=== PATIENT | female | born 1985 | race Caucasian/White ===

== ENCOUNTER 2019-06-15 10:21 | Outpatient (CLI) | payer OTHER, MEDICAID, SELFPAY ==
[2019-06-15 11:11] LABS: Appearance Urine UA CLEAR; Bilirubin Urine UA NEGATIVE (NEGATIVE); Color Urine UA YELLOW; Glucose Urine UA NEGATIVE (Negative); Ketones Urine UA NEGATIVE (NEGATIVE); Leukocyte Esterase Urine UA NEGATIVE (NEGATIVE); Nitrite Urine UA NEGATIVE (Negative); Occult Blood Urine UA NEGATIVE (Negative); Protein Urine UA NEGATIVE (Negative); Specific Gravity Urine UA <=1.005 (1.000-1.035); Urobilinogen Urine UA 0.2 E.U./dL (0.2)
== END 2019-06-15 11:48 | disposition home or self-care (01) ==
LOC: OB 06-16 12:39
PROVIDERS: Visit Provider Specialist
DX: O26.23 Pregnancy care for patient with recurrent pregnancy loss, third trimester (principal); Z3A.28 28 weeks gestation of pregnancy
CPT/HCPCS: 59025; 81003; G0378; G0379

== ENCOUNTER → 2019-06-25 11:56 | Outpatient (CLI) | payer OTHER, MEDICAID, SELFPAY ==
--- NOTE | 2019-06-25 11:58 | DI.US.S_ITS ---
PROCEDURE: US OB FOLLOW UP INDICATIONS: F/U TO ANATOMY SCAN OUTSIDE/PRIOR DATING DATA: . First dating scan (date and location): 06/25/17. Estimated date of delivery ([place]) from first dating scan: 09/06/19 which is provided by Dr. Patel. TECHNIQUE: Real-time scanning was performed of the fetus, with image documentation and biometric measurements. Endovaginal scanning: No COMPARISON: [facility], US, US OB >= 14 WEEKS FETUS, 06/25/2019, 11:38. Prior ultrasound report from [facility] dated 04/07/19. FINDINGS: General: A single living intrauterine gestation is present. Presentation: Vertex. Placenta: Placental position is anterior, without previa. Amniotic fluid index: 16.5 cm, normal range is 5-24 cm. heart rate: 133 beats per minute. Maternal cervical canal: 6.9 cm long. Normal lower limit is 2.5 cm. biometrics: Biparietal diameter: 31 weeks 6 days Head circumference: 31 weeks 6 days Abdominal circumference: 31 weeks 2 days Femur length: 29 weeks 4 days Estimated gestational age from initial scan: 29 weeks 4 days Composite gestational age from present scan: 31 weeks 1 day Estimated weight and percentile: 1660 g; 83rd percentile Measurement variability for biometric dating: +/- 7 days from 14 weeks to 15 weeks 6 days gestation, +/- 10 days from 16 weeks to 21 weeks 6 days gestation, +/- 2 weeks from 22 weeks to 27 weeks 6 days gestation, +/- 3 weeks for 28 weeks gestation or later. weight reference: 4500 g or EFW >90/95% is considered macrosomia or large for gestational age. EFW <10% is small for gestational age. EFW 5% or less is considered intra-uterine growth restriction. Unremarkable appearance of the spine, 4 chamber heart, stomach and bladder. No ultrasound evidence of hydronephrosis identified. Bilateral hands and ventricular outflow tracts are suboptimally visualized on this exam. Other: Prominent and heterogeneous mass-like appearance of the cervix noted, which was also described on a provided radiology report dated 04/07/19 4 a scan from [facility]. A large masslike component of the cervix measures 6.2 x 3.8 x 3.4 cm with internal vascularity. Continued followup recommended. IMPRESSION: 1. Single intrauterine gestation with composite gestational age from present scan of 31 weeks 1 day and heart rate of 133 beats per minute. 2. The bilateral hands and ventricular outflow tracts are suboptimally visualized on this exam. Attention on followup exams suggested. 3. Prominent masslike abnormal appearance of the cervix, which appears to have also been described on comparison outside radiology reports and may be related to cervical fibroids. Close clinical followup and ultrasound followup are recommended. Dictated by: Sixto Combs [facility] Interpreted: Tristin Montanez MD on 06/25/2019 at 16:50 Approved by: Tristin Montanez M.D. on 06/25/2019 at 20:54
== END ==
PROVIDERS: Visit Provider Specialist
DX: O09.523 Supervision of elderly multigravida, third trimester (principal); Z3A.31 31 weeks gestation of pregnancy
CPT/HCPCS: 36415; 76816

== ENCOUNTER → 2019-08-12 11:47 | Outpatient (CLI) | payer OTHER, MEDICAID, SELFPAY ==
[2019-08-13 08:09] LABS: Strep Grp B PCR NEG for Grp B Strep
== END ==
PROVIDERS: Visit Provider Obstetrics & Gynecology
DX: Z34.83 Encounter for supervision of other normal pregnancy, third trimester (principal); Z36.85 Encounter for antenatal screening for Streptococcus B; Z3A.36 36 weeks gestation of pregnancy
CPT/HCPCS: 87653

== ENCOUNTER 2019-08-31 11:24 | Inpatient (IN) | payer OTHER, MEDICAID, SELFPAY ==
--- NOTE | 2019-08-31 12:38 | PM.OBHP.1 ---
OB HPI Date/Time Date of admission: 08/31/19 Date Patient Seen: 08/31/19 History of Present Condition Chief complaint: [id number] : 8 Para: 5 Estimated Date of Delivery: 09/06/19 Estimated Gestational Age (weeks): 39 Narrative: Sharri Negrete is a 33 year old female admitted for repeat section Indications Operative indications ( section): previous uterine surgery History of Present care: good care, initiated at week # (7), number of visits (12) and pounds weight gain (48) Dating criteria: LMP confirmed by 1st trimester US Ultrasounds: normal mid trimester US Abnormal ultrasound findings: Cervical fibroid Obstetrical complications: none Medical complications: none Preadmission Labs Blood type: A (+) positive -: Antibody screen: negative, GBS status: negative, HBsAG: negative, HIV: negative and RPR/VDLR: negative -: Chlamydia screen: not detected and Gonorrhea screen: not detected -: Rubella: immune HCAB: negative Cell-free DNA: Normal female Prior (ies) History: See ACOG form Evaluation Evaluation Baseline heart rate: 130 Variability: Moderate (11-25) monitor accelerations: Present monitor decelerations: Absent Category of Tracing: I [facility] Medical History (Updated 06/23/19 @ 20:28 by Hailee Casillas) Anxiety (Chronic ~2017) Chicken pox (Resolved ~1987) Depression (Chronic ~2012) Headache (Chronic ~1999) Migraines (Chronic ~1999) Uterine myoma (Acute ~2016) Surgical History (Updated 06/03/19 @ 12:21 by Jossy Patel MD) Previous section (Acute ~09/16/17) Family History (Updated 06/23/19 @ 20:28 by Hailee Casillas) Brother Hypertension Meds Home Medications and Allergies Home Medications Medication Instructions Recorded Confirmed Type prenat.vits,brooke,lxb-[id number]-[id number] 1 tab PO DAILY 06/02/19 History Allergies Allergy/AdvReac Type Severity Reaction Status Date / Time No Known Drug Allergies Allergy Verified 06/02/19 11:57 Review of Systems Review of Systems Narrative: Patient has had good movement. No signs or symptoms of preeclampsia. No fevers. No rupture membranes. Patient decided she does not wish to have a tubal ligation. ROS Unobtainable: All systems reviewed & are unremarkable except as noted in HPI and below Exam Vital Signs (past 8 hours): Blood pressure 121/86, pulse 78 Narrative Exam Narrative: HEENT exam within normal limits. Lungs are clear to auscultation and percussion. Heart is regular rate and rhythm no S3-S4 or murmurs. No thyromegaly. Abdomen is gravid. Fetus is vertex. Extremities without edema and nontender. Objective Labs Result Diagrams: 08/31/19 12:05 Assessment and Plan Assessment and Plan Assessment and Plan narrative: 39 week gestation with prior section in large cervical fibroid for repeat section
[2019-08-31 12:47] LABS: Add Manual Diff / Slide Review NO; Basophils Absolute Auto 0 /uL (0-100); Basophils Percent Auto 0.6 % (0-2); Eosinophils Absolute Auto 100 /uL (0-450); Eosinophils Percent Auto 1.5 % (2-4); Hemoglobin 13.3 g/dL (12.0-16.0); Lymphocytes Absolute Auto 2000 /uL (1100-4500); Lymphocytes Percent Auto 29.6 % (25-40); Mean Corpuscular HGB Conc 34.1 % (30-36); Mean Corpuscular Hemoglobin 32.7 PG (26-34); Monocytes Absolute Auto 600 /uL (0-900); Monocytes Percent Auto 9.2 % (3-14); Neutrophils Absolute Auto 3900 /uL (1500-7000); Neutrophils Percent Auto 59.1 % (50-75); Platelet Count 246 X10^3/uL (150-400); Red Blood Cell Count 4.07 X10^6/uL (4.0-5.2); White Blood Cell Count 6.7 X10^3/uL (4.5-11.0)
--- NOTE | 2019-08-31 12:57 | PM.PREOP ---
Pre-operative Note Interval Note History & Physical reviewed/Exam performed by Physician: Yes Changes to H&P: No H&P completed within 30 days and has changed as indicated here:: Patient has decided not to have a tubal ligation at time of
[2019-08-31 13:06] VITALS: BP 121/68
--- NOTE | 2019-08-31 13:09 | SUR.OPER ---
Supine on Padded OR bed, head on pillow, safety belt at thigh, arms secured on padded arm boards at <90 degrees abduction. Bump under right buttock. Legs uncrossed with pillow under knees, gel pad to heels, tape over blanket to lower legs.
[2019-08-31] MEDS: LACTATED RINGERS 1,000 ML 100 ML IV ×2 (13:13→15:30)
[2019-08-31] MEDS: CEFAZOLIN 2 GM/100 ML FROZ.PIGGY IV (13:32)
[2019-08-31] MEDS: ACETAMINOPHEN IV 1,000 MG/100 ML VIAL 400 MG IV (13:51)
--- NOTE | 2019-08-31 14:04 | SUR.OPER ---
VIABLE FEMALE INFANT DELIVERED AT 1355. PLACENTA AND CORD BLOOD TO OB WITH RN.
[2019-08-31 14:40] VITALS: BP 102/61; PULSE 70; RESP 11; TEMP 36.2; O2SAT 97
[2019-08-31 14:45] VITALS: BP 107/64; PULSE 70; RESP 15; O2SAT 97
--- NOTE | 2019-08-31 14:48 | P.OP_ITS ---
Operative Date/Time/Diagnoses Date of procedure: 08/31/19 Time of procedure: 14:48 Pre-op diagnosis: 39 week gestation with prior section for repeat Post-op diagnosis: same Procedure & Clinicians Procedure: Repeat low-transverse section Same procedure as scheduled: Yes Indications: Previous section and cervical fibroid Surgeon: Jossy Patel Vice President Of Consulting Services: Jamia Hammer Anesthesia Type: Spinal Operative Notes Findings: Normal tubes, ovaries,and uterus. Viable female with Apgars of 8, 9. Weight is pending Closure Type: primary Specimen(s): none sent Applied: catheter (Cool) Estimated Blood Loss (mL): 400 Blood products transfused: none Procedure in detail: The patient was brought to the operating room where she underwent a spinal for anesthesia. She was placed in a supine position with a left lateral tilt. A Cool catheter was placed. Pulsatile stockings were placed and functional throughout the case. 2 g of Ancef were given IV prior to the incision. Warming was in place. The patient was prepped and draped in usual sterile fashion. A low transverse incision was made with a scalpel through the prior incision and the incision was carried down to the fascial layer which was incised transversely with scissors. The midline attachments are superiorly and inferiorly. Some bleeding was controlled Bovie. The rectus muscles were in the midline and the peritoneal incision was made with no damage to internal structures. The peritoneum was incised and superiorly and inferiorly. Bladder blade was placed and a bladder flap was developed and the bladder held away from the lower uterine segment. An incision was made in the uterus with the scalpel and the incision was extended with stretching. The head was elevated out of the abdomen and with fundal pressure and vacuum assistance the baby was delivered. The was bulb suctioned for clear fluid and handed off to the warmer. Cord blood was collected. The placenta delivered spontaneously with traction. The uterus was cleaned with clean laps. The uterine incision was closed in 2 layers of 0 chromic suture the first a running locking layer the second an imbricating layer. The bladder peritoneum was repaired with 2-0 Polysorb suture. The gutters were cleaned of any remaining fluids and ovaries and tubes were observed to be normal. Adequate hemostasis was noted. The perineum was closed with 2-0 Polysorb suture. The fascia layer was closed with 0 Polysorb suture with 2 stitches. The incision was irrigated and adequate hemostasis noted. The incision was closed with interrupted 3-0 Polysorb sutures and then a subcuticular stitch of 4-0 Polysorb suture. Steri- Strips were placed. The uterus was massaged to remove any clots. Per patient request a skin tag on her vulva was removed with the scalpel and closed with a [id number] suture of 4 0 Monocryl. The patient went to recovery room in good condition. Counts of instruments and sponges were correct. Complications: none Post-operative Condition: stable Disposition: other ( Center) Plan for aftercare: Routine post section
[2019-08-31 14:50] VITALS: BP 112/54; PULSE 77; RESP 11; O2SAT 97
[2019-08-31] MEDS: ONDANSETRON 4 MG/2 ML INJ IV (14:57)
[2019-08-31 15:06] VITALS: BP 111/56; PULSE 77; RESP 11; TEMP 36.7; O2SAT 96
[2019-08-31] MEDS: OXYCODONE IR 5 MG TABLET PO ×2 (18:02→21:40)
[2019-08-31] MEDS: METOCLOPRAMIDE 10 MG/2 ML INJ IV (21:40)
[2019-08-31] MEDS: KETOROLAC 30 MG/ML VIAL IV (21:40)
[2019-09-01] MEDS: LACTATED RINGERS 1,000 ML 100 ML IV (01:00)
[2019-09-01] MEDS: OXYCODONE IR 5 MG TABLET PO ×5 (04:46→23:38)
[2019-09-01] MEDS: KETOROLAC 30 MG/ML VIAL IV ×2 (04:46→10:49)
[2019-09-01 06:02] LABS: Add Manual Diff / Slide Review NO; Basophils Absolute Auto 0 /uL (0-100); Basophils Percent Auto 0.4 % (0-2); Eosinophils Absolute Auto 100 /uL (0-450); Hematocrit 36.8 % (36-46); Hemoglobin 12.5 g/dL (12.0-16.0); Lymphocytes Absolute Auto 1400 /uL (1100-4500); Lymphocytes Percent Auto 18.1 % (25-40); Mean Corpuscular HGB Conc 34.1 % (30-36); Mean Corpuscular Hemoglobin 32.8 PG (26-34); Mean Corpuscular Volume 96.4 fL (80-100); Monocytes Absolute Auto 700 /uL (0-900); Monocytes Percent Auto 8.9 % (3-14); Neutrophils Absolute Auto 5700 /uL (1500-7000); Neutrophils Percent Auto 71.6 % (50-75); Platelet Count 228 X10^3/uL (150-400); Red Blood Cell Count 3.82 X10^6/uL (4.0-5.2); Red Cell Distribution Width 13.8 % (11.6-14.8)
[2019-09-01] MEDS: DOCUSATE 250 MG CAPSULE PO (08:33)
--- NOTE | 2019-09-01 10:18 | P.PNOB_ITS ---
Subjective - OB Subjective Patient comments: no complaints and flatus present [place] baby status: doing well feeding status: exclusively breast feeding Date Patient Seen: 09/01/19 Time Patient Seen: 10:18 Interval history: Patient is day 1 post repeat section doing well. Exam Vital Signs (past 8 hours): Blood pressure 101/56, pulse 71, temperature 97.9? Oxygen Delivery Method Room Air Narrative Exam Narrative: Abdomen is soft, nontender. Uterus is firm, at U, nontender. Dressing is clean, dry, intact. Mild lochia. Extremities without edema and nontender. Objective Labs Result Diagrams: 09/01/19 05:45 Labs: Laboratory Results - last 24 hr 08/31/19 08/31/19 09/01/19 12:05 12:05 05:45 WBC 6.7 8.0 RBC 4.07 3.82 L Hgb 13.3 12.5 Hct 39.0 36.8 MCV 96.0 96.4 MCH 32.7 32.8 MCHC 34.1 34.1 RDW 14.0 13.8 Plt Count 246 228 Neut % (Auto) 59.1 71.6 Lymph % (Auto) 29.6 18.1 L [place] % (Auto) 9.2 8.9 Eos % (Auto) 1.5 L 1.0 L Baso % (Auto) 0.6 0.4 Neut # (Auto) 3900 5700 Lymph # (Auto) 2000 1400 [place] # (Auto) 600 700 Eos # (Auto) 100 100 Baso # (Auto) 0 0 Blood Type A Positive Antibody Screen Negative Assessment & Plan Assessment and Plan (1) Status post repeat low transverse section: Status: Acute Assessment and plan: Patient doing well post section. Current Visit: Yes Plan day: 1 plan OB: routine postop care Time Spent With Patient Time: Total time spent is greater than 50% in coordination of care (as documented) at patient's floor/unit and/or counseling patient: Time with patient: less than 15 minutes
[2019-09-01] MEDS: IBUPROFEN 600 MG TABLET PO ×2 (16:50→23:38)
[2019-09-02] MEDS: OXYCODONE IR 10 MG TABLET PO ×3 (03:01→12:44)
[2019-09-02] MEDS: ACETAMINOPHEN 325 MG TABLET 650 MG PO (03:01)
--- NOTE | 2019-09-02 07:40 | P.DS_ITS ---
Discharge Providers Provider Date of admission: 08/31/19 11:24 Discharge Date: 09/02/19 Consults: 08/31/19 15:21 Consult to Family Law Legal Assistant Routine Comment: Discharge provider: Jossy Patel MD Summary Hospital Course Date Patient Seen: 09/02/19 Time Patient Seen: 07:40 Procedures: Repeat low-transverse section Hospital Course: Patient underwent a repeat low-transverse section on 08/31/2019. She did well postoperatively. Peripartum Data Infant Delivery Method: Section complications: none [place] 1: Gender: Female Disposition of : home Discharge Diagnosis (1) Status post repeat low transverse section: Status: Acute Status at Discharge Cognitive/behavioral status at discharge: oriented Functional status at discharge: independent ambulation Overall status at discharge: patient is progressing back to baseline Time Spent with Patient Time attestation: Total time spent providing and/or coordinating discharge services: Time spent: Less than 30 minutes Objective Labs Result Diagrams: 09/01/19 05:45 Exam Vital Signs (past 8 hours): Blood pressure 120/73, pulse 79, temperature 98.9? Oxygen Delivery Method Room Air Narrative Exam Narrative: Abdomen is soft, nontender. Uterus is firm, at U, appropriately tender. Dressing is clean, dry, intact. Minimal lochia. Extremities trace edema and nontender. Patient is a positive and rubella immune and received Tdap in the 3rd trimester. Discharge Plan Discharge Plan Patient Disposition: Home Discharge orders & Medications Prescriptions: New ibuprofen 600 mg Tablet 600 mg PO Q6HR PRN (Reason: Fever/Mild Pain (1-3)) Qty: 30 RF: 0 docusate sodium 250 mg Capsule 250 mg PO DAILY Qty: 20 RF: 0 oxycodone 10 mg Tablet 10 mg PO Q4HR PRN (Reason: Pain, Severe (7-10)) Qty: 40 RF: 0 Continued prenat.vits,brooke,cqn-[id number] tablet 1 tab PO DAILY RF: 0 Follow up/Referrals: Josys Patel MD [Physician] - (1 week incision check) Diet/Activity/Treatments Diet: Regular Activity: Nothing in vagina or lift over 20 lb for 6 weeks Skin/Wound/Dressing Care Report to your healthcare provider any signs of infection, such as:: chills, fever, increased pain and unusual redness Dressing: Leave dressing on until 1 week appointment
[2019-09-02] MEDS: DOCUSATE 250 MG CAPSULE PO (08:42)
[2019-09-02] MEDS: IBUPROFEN 600 MG TABLET PO (09:22)
[2019-09-02 14:04] VITALS: BP 111/56; PULSE 77; RESP 11; TEMP 36.7
== END 2019-09-02 13:55 | disposition home or self-care (01) | DRG 540 ==
LOC: AC 11:29 → LABOR 11:29
PROVIDERS: Admitting Provider Specialist; Visit Provider Specialist
PROC: 10D00Z1 Extraction of Products of Conception, Low, Open Approach (ICD-10-PCS; CPT 59514; principal; 2019-08-31 13:30)
DX: O34.211 Maternal care for low transverse scar from previous cesarean delivery (principal); Z3A.39 39 weeks gestation of pregnancy; Z37.0 Single live birth; D26.0 Other benign neoplasm of cervix uteri
CPT/HCPCS: 36415; 59050; 59514; 85025; 86850; 86900; 86901; J0131; J0690; J1885; J2274; J2405; J2704; J2765

== ENCOUNTER 2020-03-28 19:41 | Emergency (ER) | payer OTHER, MEDICAID, SELFPAY ==
[2020-03-28 19:45] VITALS: BP 172/76; PULSE 111; RESP 24; TEMP 36.8; O2SAT 95; BMI 35.9
[2020-03-28 20:29] LABS: Add Manual Diff / Slide Review NO; Basophils Absolute Auto 0 /uL (0-100); Basophils Percent Auto 0.3 % (0-2); Eosinophils Absolute Auto 0 /uL (0-450); Eosinophils Percent Auto 0.8 % (2-4); Hematocrit 43.8 % (36-46); Hemoglobin 14.9 g/dL (12.0-16.0); Lymphocytes Absolute Auto 1700 /uL (1100-4500); Lymphocytes Percent Auto 29.3 % (25-40); Mean Corpuscular HGB Conc 34.1 % (30-36); Mean Corpuscular Hemoglobin 32.2 PG (26-34); Mean Corpuscular Volume 94.4 fL (80-100); Monocytes Absolute Auto 700 /uL (0-900); Monocytes Percent Auto 11.4 % (3-14); Neutrophils Absolute Auto 3500 /uL (1500-7000); Neutrophils Percent Auto 58.2 % (50-75); Platelet Count 253 X10^3/uL (150-400); Red Blood Cell Count 4.64 X10^6/uL (4.0-5.2); Red Cell Distribution Width 11.9 % (11.6-14.8)
[2020-03-28 20:31] LABS: Amorphous Sediment Urine 1+; Bacteria Urine Many (>30); Culture Indicated Urine Specimen Cultured; Mucus Urine 1+ (Negative); RBC Urine 1-5/HPF (0-5/HPF); Squamous Epithelial Cell Urine 10-30 /HPF (0-5/HPF); WBC Urine 10-30/HPF (0-5/HPF)
[2020-03-28 20:39] LABS: INR 1.1 (0.9-1.3); Prothrombin Time 12.3 SECONDS (10.1-12.7)
[2020-03-28 20:41] LABS: Alanine Aminotransferase 21 IU/L (<35); Albumin 4.2 g/dL (3.5-5.0); Albumin Globulin Ratio 1.3 (1.0-2.8); Alkaline Phosphatase 67 U/L (38-126); Aspartate Aminotransferase 26 IU/L (14-36); BUN Creatinine Ratio 23.2 (6-22); Bilirubin Total 0.7 mg/dL (0.2-1.3); Blood Urea Nitrogen 13 mg/dL (7-17); Calcium 9.2 mg/dL (8.4-10.2); Carbon Dioxide 25 mmol/L (22-32); Chloride 106 mmol/L (98-107); Estimated Glomerular Filt Rate > 60.0 mL/min (>60); Globulin 3.2 g/dL (1.7-4.1); Glucose 99 mg/dL (70-100); HEMOLYSIS < 15 (0-50); Lipase 45 U/L (23-300); PTT Partial Thromboplastin Tim 36 SECONDS (26.4-36.2); Potassium 3.7 mmol/L (3.4-5.1); Sodium 140 mmol/L (137-145); Total Protein 7.4 g/dL (6.3-8.2)
--- NOTE | 2020-03-28 22:20 | ED_ITS ---
HPI - Abdominal Pain General Chief Complaint: Abdominal Pain Stated Complaint: Muscle Spasms, Whole Body Time Seen by Provider: 03/28/20 22:20 Source: patient Mode of arrival: Ambulatory Limitations: no limitations History of Present Illness HPI narrative: The patient complains of generalized muscle spasm and cramping pain associated with spasm, all over the body. However she specific complains of abdominal cramping. With this she has no nausea vomiting. She has had no diarrhea. She is not . She denies dysuria or hematuria. She has no history suggesting urinary infection. She denies headache, visual changes, or weakness or numbness. She takes vitamins, as well as sertraline for depression. She has been on the sertraline for several months. She has no associated dyspnea or throat tightness. She has no rash. She denies recent fever or illness. She has done no physical activity that would create the muscle pain. She initially denied other ingestion. She has a prior history of methamphetamine abuse. After being confronted with the toxicology screen, she confirmed marijuana use March 26. Related Data Home Medications Medication Instructions Recorded Confirmed prenat.vits,brooke,[id number] 1 tab PO DAILY 06/02/19 11/25/19 Previous Rx's Medication Instructions Recorded ibuprofen 600 mg PO Q6HR PRN #30 tab 09/02/19 sertraline 50 mg tablet 50 mg PO DAILY #90 tab 10/08/19 Allergies Allergy/AdvReac Type Severity Reaction Status Date / Time No Known Drug Allergies Allergy Verified 11/25/19 10:37 Review of Systems Constitutional Constitutional: Denies chills, Denies fever(s), Denies lethargy and Denies weakness Comments: No recent illness Eyes Eyes: Denies change in vision ENT Ears, Nose, Mouth, and Throat: Denies change in voice, Denies vertigo, Denies dizziness, Denies neck pain and Denies sore throat Cardiovascular Cardiovascular: Denies chest pain, Denies syncope, Denies irregular heart rhythm, Denies dyspnea, Denies dyspnea on exertion and Denies orthopnea Respiratory Respiratory: Denies cough, Denies dyspnea, Denies dyspnea on exertion and Denies wheezing Gastrointestinal Gastrointestinal: Denies change in bowel habits, Denies diarrhea, Denies nausea and Denies vomiting Comments: Cramping abdominal pain. Genitourinary Genitourinary: Denies dysuria Genitourinary: Denies dysuria Musculoskeletal Musculoskeletal: Denies back pain and Denies neck pain Integumentary/Breasts Skin/Breast: Denies erythema and Denies rash Neurologic Neurologic: Denies behavioral changes, Denies confusion, Denies vertigo, Denies dizziness, Denies syncope and Denies weakness Psychiatric Psychiatric: Reports anxiety, Denies behavioral changes and Denies confusion Allergic/Immunologic Allergic/Immunologic: Denies wheezing Patient History Medical History Anxiety (Chronic ~2017) Chicken pox (Resolved ~1987) Depression (Chronic ~2012) Headache (Chronic ~1999) History of methamphetamine abuse (Acute) Migraines (Chronic ~1999) Uterine myoma (Acute ~2016) Surgical History Previous section (Acute ~09/16/17) Family History Brother Hypertension Social History Smoking Status: Former smoker Smoking Status: Former smoker alcohol intake frequency: 0-2 drinks per day Substance Use Type: does not use Exam Initial Vital Signs Initial Vital Signs: Vital Signs Temperature 98.2 F 03/28/20 19:45 Pulse Rate 111 H 03/28/20 19:45 Respiratory Rate 24 03/28/20 19:45 Blood Pressure 172/76 H 03/28/20 19:45 Pulse Oximetry 95 03/28/20 19:45 Const General: cooperative and well developed Nutritional Appearance: well nourished [facility] Head: normocephalic and atraumatic Nose: external nose normal Mouth: oral mucosae normal Throat: posterior oropharynx normal Eyes General: appearance normal, both eyes and all related structures Eyelids: eyelids normal Conjunctivae: conjunctivae normal Sclera: sclerae normal Pupils: PERRL and pupil size on the right 6 and on the left 6 EOM: EOM intact bilaterally Neck Neck: No JVD Resp Effort & Inspection: normal respiratory effort and able to speak in complete sentences Auscultation: clear to auscultation bilaterally, no rales, no rhonchi and no wheezes Cardio Rate: regular rate Rhythm: regular rhythm Heart Sounds: no click, no gallops, no murmurs and no rubs Pulses: normal peripheral pulses GI Inspection: non-distended Palpation: soft, no hepatosplenomegaly, No guarding, No pulsatile mass and No tender Auscultation: normal bowel sounds Back/Spine/Pelvis Back: No CVA tenderness Skin General: no rashes or lesions noted Neuro General: patient alert, patient oriented x3, gait normal and no focal motor deficits Speech: speech normal Extrem General: full ROM, no pedal edema and no calf tenderness Psych Appearance: well kempt Mental Status: mental status grossly normal Attitude: cooperative Course Course Course Narrative: The patient was treated with IV fluid bolus, and IV Ativan. She initially came some insomnia, she was able to awaken and have a coherent conversation. She was oriented x3, seemingly not agitated we spoke the 2nd time. The UA was consistent with the UTI, Rocephin was given. There was only clinical finding before the drug screen came back. I informed her of the findin gs on the drug screen. She declined using the drugs listed, noting that she did smoke marijuana March 26, however. She tells me she has a remote history of methamphetamine abuse. Avoiding all drug use is suggested. I advised follow-up with her doctor or an appropriate social agency if necessary to avoid drug use. Orders Ordered: ED Orders 03/28/20 19:55 Urine Culture Stat Urine Drug Screen, Rapid Stat Urine Microscopic Stat 03/28/20 20:10 Complete Blood Count AUTO DIFF Stat Comprehensive Metabolic Panel Stat Creatine Kinase Stat Lipase Stat Partial Thromboplastin Time Stat Prothrombin Time INR Stat Sodium Chloride (Normal Saline 0.9%) 1,000 mls @ 1,000 mls/hr IV BOLUS PRN PRN Reason: Fluid replacement Last Infusion: 03/29/20 00:38 Dose: 0 mls/hr Documented by: Admin: 03/28/20 22:36 Dose: 1,000 mls/hr Documented by: ANGEL Discontinued Medications Ceftriaxone Sodium/Dextrose (Rocephin) 1 gm in 50 mls @ 100 mls/hr IV NOW ONE Stop: 03/28/20 22:57 Last Infusion: 03/28/20 23:24 Dose: 0 mls/hr Documented by: Admin: 03/28/20 22:36 Dose: 100 mls/hr Documented by: ANGEL Lorazepam (Ativan) 0.5 mg IV NOW ONE Stop: 03/28/20 22:28 Last Admin: 03/28/20 22:35 Dose: 0.5 mg Documented by: ANGEL Lorazepam (Ativan) 0.5 mg IV NOW ONE Stop: 03/28/20 22:56 Last Admin: 03/28/20 22:59 Dose: 0.5 mg Documented by: ANGEL Vital Signs Vital signs: Vital Signs - 8 hr 03/28/20 19:45 03/28/20 22:30 03/28/20 23:00 Temperature 98.2 F Pulse Rate 111 H 113 H 105 H Respiratory Rate 24 Blood Pressure 172/76 H 146/90 H Pulse Oximetry 95 97 96 03/28/20 23:03 03/28/20 23:30 03/28/20 23:31 Temperature Pulse Rate 101 H 90 100 H Respiratory Rate Blood Pressure 138/89 149/81 H Pulse Oximetry 96 96 96 03/29/20 00:00 Temperature Pulse Rate 98 H Respiratory Rate Blood Pressure 143/82 H Pulse Oximetry 96 MDM - Abdominal Pain Lab Data Result diagrams: 03/28/20 20:10 03/28/20 20:10 Labs: Lab Results 03/28/20 03/28/20 03/28/20 Range/Units 19:55 19:55 20:10 WBC 6.0 (4.5-11.0) X10^3/uL RBC 4.64 (4.0-5.2) X10^6/uL Hgb 14.9 (12.0-16.0) g/dL Hct 43.8 (36-46) % MCV 94.4 (80-100) fL MCH 32.2 (26-34) PG MCHC 34.1 (30-36) % RDW 11.9 (11.6-14.8) % Plt Count 253 (150-400) X10^3/uL Neut % (Auto) 58.2 (50-75) % Lymph % (Auto) 29.3 (25-40) % [place] % (Auto) 11.4 (3-14) % Eos % (Auto) 0.8 L (2-4) % Baso % (Auto) 0.3 (0-2) % Neut # (Auto) 3500 (9399-9468) /uL Lymph # (Auto) 1700 (0350-0831) /uL [place] # (Auto) 700 (0-900) /uL Eos # (Auto) 0 (0-450) /uL Baso # (Auto) 0 (0-100) /uL PT (10.1-12.7) SECONDS INR (0.9-1.3) APTT (26.4-36.2) SECONDS Sodium (137-145) mmol/L Potassium (3.4-5.1) mmol/L Chloride (98-107) mmol/L Carbon Dioxide (22-32) mmol/L BUN (7-17) mg/dL Creatinine (0.52-1.04) mg/dL Estimated GFR (>60) mL/min BUN/Creatinine Ratio (6-22) Glucose (70-100) mg/dL Calcium (8.4-10.2) mg/dL Total Bilirubin (0.2-1.3) mg/dL AST (14-36) IU/L ALT (<35) IU/L Alkaline Phosphatase (38-126) U/L Total Creatine Kinase (30-135) U/L Total Protein (6.3-8.2) g/dL Albumin (3.5-5.0) g/dL Globulin (1.7-4.1) g/dL Albumin/Globulin Ratio (1.0-2.8) Lipase (23-300) U/L Urine RBC 1-5/hpf (0-5/HPF) Urine WBC 10-30/hpf H (0-5/HPF) Ur Squamous Epith Cells 10-30 /hpf H (0-5/HPF) Amorphous Sediment 1+ Urine Bacteria Many (>30) H (None) Urine Mucus 1+ H (Negative) Ur Culture Indicated? Specimen cultured U Opiates 300ng/mL cut Positive H (Negative) Ur Oxycodone Screen Negative (Negative) Urine Methadone Screen Negative (Negative) Ur Barbiturates Screen Negative (Negative) U Tricyclic Antidepress Positive H (Negative) Ur Phencyclidine Scrn Negative (Negative) Ur Amphetamines Screen Positive H (Negative) U Methamphetamines Scrn Positive H (Negative) Ur MDMA Scrn (Ecstasy) Positive H (Negative) U Benzodiazepines Scrn Negative (Negative) Urine Cocaine Screen Negative (Negative) U Marijuana (THC) Screen Positive H (Negative) 03/28/20 03/28/20 03/28/20 Range/Units 20:10 20:10 20:10 WBC (4.5-11.0) X10^3/uL RBC (4.0-5.2) X10^6/uL Hgb (12.0-16.0) g/dL Hct (36-46) % MCV (80-100) fL MCH (26-34) PG MCHC (30-36) % RDW (11.6-14.8) % Plt Count (150-400) X10^3/uL Neut % (Auto) (50-75) % Lymph % (Auto) (25-40) % [place] % (Auto) (3-14) % Eos % (Auto) (2-4) % Baso % (Auto) (0-2) % Neut # (Auto) (5099-9658) /uL Lymph # (Auto) (2723-3019) /uL [place] # (Auto) (0-900) /uL Eos # (Auto) (0-450) /uL Baso # (Auto) (0-100) /uL PT 12.3 (10.1-12.7) SECONDS INR 1.1 (0.9-1.3) APTT 36 (26.4-36.2) SECONDS Sodium 140 (137-145) mmol/L Potassium 3.7 (3.4-5.1) mmol/L Chloride 106 (98-107) mmol/L Carbon Dioxide 25 (22-32) mmol/L BUN 13 (7-17) mg/dL Creatinine 0.56 (0.52-1.04) mg/dL Estimated GFR > 60.0 (>60) mL/min BUN/Creatinine Ratio 23.2 H (6-22) Glucose 99 (70-100) mg/dL Calcium 9.2 (8.4-10.2) mg/dL Total Bilirubin 0.7 (0.2-1.3) mg/dL AST 26 (14-36) IU/L ALT 21 (<35) IU/L Alkaline Phosphatase 67 (38-126) U/L Total Creatine Kinase 152 H (30-135) U/L Total Protein 7.4 (6.3-8.2) g/dL Albumin 4.2 (3.5-5.0) g/dL Globulin 3.2 (1.7-4.1) g/dL Albumin/Globulin Ratio 1.3 (1.0-2.8) Lipase 45 (23-300) U/L Urine RBC (0-5/HPF) Urine WBC (0-5/HPF) Ur Squamous Epith Cells (0-5/HPF) Amorphous Sediment Urine Bacteria (None) Urine Mucus (Negative) Ur Culture Indicated? U Opiates 300ng/mL cut (Negative) Ur Oxycodone Screen (Negative) Urine Methadone Screen (Negative) Ur Barbiturates Screen (Negative) U Tricyclic Antidepress (Negative) Ur Phencyclidine Scrn (Negative) Ur Amphetamines Screen (Negative) U Methamphetamines Scrn (Negative) Ur MDMA Scrn (Ecstasy) (Negative) U Benzodiazepines Scrn (Negative) Urine Cocaine Screen (Negative) U Marijuana (THC) Screen (Negative) Point of care testing: Point of Care Testing Test Results Negative Urine Dip Bedside Urine Glucose Negative Bedside Urine Bilirubin ++ 2 Bedside Urine Ketone + 15 Urine Specific [place] 1.030 Bedside Urine Occult Blood +/- Bedside Urine pH 5.5 Bedside Urine Protein + 30 Bedside Urine Urobilinogen +/- 1mg Bedside Urine Nitrite + Positive Bedside Urine Leukocytes ++ 125 Esterase Discharge Plan Departure Patient Disposition: Home Clinical Impression: Polysubstance abuse Discharge Date/Time: 03/29/20 00:58 Instructions: Substance Use Disorder Activity Restrictions/Additional Instructions: Drink plenty of fluids and stay well hydrated. Tylenol 2 tabs every 4 hours as needed for cramping. Avoid all substances, I would suggest even marijuana. Contact your doctor or an appropriate agency to seek help with detox/rehab if necessary. Return to the ER as needed. Prescriptions: No Action prenat.vits,brooke,[id number] tablet 1 tab PO DAILY RF: 0 sertraline [Zoloft] 50 mg tablet 50 mg PO DAILY Qty: 90 RF: 3 ibuprofen 600 mg Tablet 600 mg PO Q6HR PRN (Reason: Fever/Mild Pain (1-3)) Qty: 30 RF: 0
[2020-03-28 22:30] VITALS: BP 146/90; PULSE 113; O2SAT 97
[2020-03-28] MEDS: LORazepam 2 MG/ML INJ 0.5 MG IV ×2 (22:35→22:59)
[2020-03-28] MEDS: SODIUM CHLORIDE 0.9% 1,000 ML 1000 ML IV (22:36)
[2020-03-28] MEDS: CEFTRIAXONE 1 GM/50 ML FROZ.PIGGY IV (22:36)
[2020-03-28 22:44] LABS: Creatine Kinase 152 U/L (30-135)
--- NOTE | 2020-03-28 22:46 | PC.NURSE ---
Pt c/o worsening pain/muscle spasms despite ativan, will notify Dr Cherry
[2020-03-28 23:00] VITALS: PULSE 105; O2SAT 96
[2020-03-28 23:02] LABS: Ur Creatinine 50 (Normal)
[2020-03-28 23:03] VITALS: BP 138/89; PULSE 101; O2SAT 96
[2020-03-28 23:03] LABS: UR Morphine/Opiate cutoff 300 Positive (Negative); Ur Specific Gravity 1.025 (Normal); Urine Amphetamines Positive (Negative); Urine Barbiturates Negative (Negative); Urine Benzodiazepines Negative (Negative); Urine Cocaine Negative (Negative); Urine MDMA Positive (Negative); Urine Methadone Negative (Negative); Urine Methamphetamines Positive (Negative); Urine Oxycodone Negative (Negative); Urine Phencyclidine Negative (Negative); Urine Tetrahydrocannabinol Positive (Negative); Urine Tricyclic Antidepressant Positive (Negative); Urine pH 5 (Normal)
--- NOTE | 2020-03-28 23:06 | PC.NURSE ---
Additional 0.5mg IV ativan given per verbal order from Dr Cherry. Pt now resting, still with occasional muscle spasming. Mother at bedside concerned about eyes rolling back. pt is easily arousable, tearful. Pt states she's not sleeping much due to and small children at home. Emotional support given, pt and mom updated to POC, IVF and abx infusing.
[2020-03-28 23:30] VITALS: PULSE 90; O2SAT 96
[2020-03-28 23:31] VITALS: BP 149/81; PULSE 100; O2SAT 96
--- NOTE | 2020-03-28 23:38 | PC.NURSE ---
Pt is more sedate, mother instructed to allow pt to sleep. Lights dimmed and door closed to reduce stimulation
[2020-03-29] VITALS: BP 143/82; PULSE 98; O2SAT 96
[2020-03-29 00:26] VITALS: PULSE 98; O2SAT 95
[2020-03-29 00:30] VITALS: BP 151/84
== END 2020-03-29 00:58 | disposition home or self-care (01) ==
PROVIDERS: Emergency Provider Emergency Medicine
DX: F19.10 Other psychoactive substance abuse, uncomplicated (principal); F41.9 Anxiety disorder, unspecified; M62.838 Other muscle spasm; R10.9 Unspecified abdominal pain
CPT/HCPCS: 36415; 80053; 80305; 81003; 81015; 81025; 82550; 83690; 85025; 85610; 85730; 87077; 87086; 87186; 96365; 96375; 99284; J2060

== ENCOUNTER 2022-07-07 18:13 | Emergency (ER) | payer OTHER, MEDICAID, SELFPAY ==
[2022-07-07 18:41] VITALS: BP 132/81; PULSE 92; RESP 16; TEMP 36.6; O2SAT 100; BMI 31.7
--- NOTE | 2022-07-07 18:49 | DI.RAD.S_ITS ---
PROCEDURE: XR TOE LT MIN 2V INDICATIONS: toe pain TECHNIQUE: Frontal view of the foot, two views of the left foot 5th digit COMPARISON: None. FINDINGS: Bones: Subacute comminuted fracture of the 5th digit proximal phalanx. The fracture is mildly displaced. There is adjacent bony callus. No definite involvement of the proximal or distal articular surface identified. Mild bunion deformity. Soft tissues: No suspicious soft tissue densities. IMPRESSION: Subacute fracture of the 5th digit proximal phalanx. Dictated by: Josh Tyson M.D. on 07/07/2022 at 20:33 Approved by: Josh Tyson M.D. on 07/07/2022 at 20:36
--- NOTE | 2022-07-07 20:55 | ED.LOWEXIN ---
HPI - Extremity Injury (Lower) General Chief Complaint: Extremity Injury, Lower Stated Complaint: Broke Toe/Swelling in Extremeties Time Seen by Provider: 07/07/22 20:19 Source: patient Mode of arrival: Ambulatory History of Present Illness HPI Narrative: 36-year-old woman comes in with left foot and ankle swelling. She notes back 2 months ago she kicked a stroller with her foot and does have a nicely healing 5th proximal phalanx fracture that is mildly displaced but has nice callus forming and is not particularly tender anymore. For the last week she has had increased swelling over her foot and ankle without specific point tenderness. There is no warmth or redness to suggest infection. She does not describe specific trauma. There is no swelling more proximal and calves are equal in size without tenderness. She has not had fevers, cough, chills, vomiting, diarrhea, abdominal pain, dysuria. Related Data Home Medications Medication Instructions Recorded Confirmed prenat.vits,brooke,[id number] 1 tab PO DAILY 06/02/19 11/25/19 Previous Rx's Medication Instructions Recorded ibuprofen 600 mg tablet 600 mg PO Q6HR PRN Fever/Mild Pain 09/02/19 (1-3) #30 tabs sertraline 50 mg tablet (Zoloft) 100 mg PO DAILY #60 tabs 05/09/20 Allergies Allergy/AdvReac Type Severity Reaction Status Date / Time No Known Drug Allergies Allergy Verified 11/25/19 10:37 Review of Systems Review of Systems Narrative: Remainder of complete review of systems is otherwise unremarkable except for that included in the HPI. Patient History Medical History (Updated 07/07/22 @ 22:35 by Shira Monahan MD) Anxiety (~2017) Chicken pox (~1987) Depression (~2012) Headache (~1999) History of methamphetamine abuse Migraines (~1999) Uterine myoma (~2016) Surgical History Previous section (~09/16/17) Family History Brother Hypertension Social History Smoking Status: Current every day smoker Smoking Status: Current every day smoker tobacco type: cigarettes alcohol intake frequency: 0-2 drinks per day Substance Use Type: marijuana and methamphetamine Exam Initial Vital Signs Initial Vital Signs: Vital Signs Temperature 97.8 F 07/07/22 18:41 Pulse Rate 92 H 07/07/22 18:41 Respiratory Rate 16 07/07/22 18:41 Blood Pressure 132/81 07/07/22 18:41 Pulse Oximetry 100 07/07/22 18:41 Oxygen Delivery Method 07/07/22 18:41 General: Alert appropriate in no acute distress Respiratory: Able to speak in full sentences, no obvious respiratory distress Skin: No obvious rashes, warm and dry Neurologic: Grossly intact no obvious asymmetries or abnormalities Psych: appropriate insight and affect, cooperative Extremity: Left foot and ankle are swollen in comparison to the right more over the dorsum. There is no redness, warmth, abscess collection, specific point tenderness. Proximal to the ankle there is no significant swelling and no tenderness into the calf. No lymphangitis spread and no inguinal adenopathy Procedures Orthopedic Splinting/Casting Left foot and ankle: Time of procedure: 22:39 Side: left Lower Extremity Injury Location: ankle and foot Lower Extremity Immobilizer: Brannon wrap Post splinting neuro exam: intact Post splinting vascular exam: intact Placed by: Provider Course Orders Ordered: ED Orders 07/07/22 18:49 XR toe LT min 2V Stat 07/07/22 21:42 XR ankle LT min 3V Stat Vital Signs Vital signs: Vital Signs - 8 hr 07/07/22 18:41 Temperature 97.8 F Pulse Rate 92 H Respiratory Rate 16 Blood Pressure 132/81 Pulse Oximetry 100 Oxygen Delivery Method Room Air MDM - Extremity Injury (Lower) Imaging Data XR toe: Radiologist's Impression: FINDINGS:? ? Bones:? Subacute comminuted fracture of the 5th digit proximal phalanx.? The fracture is mildly displaced.? There is adjacent bony callus.? No definite involvement of the proximal or distal articular surface identified.? Mild bunion deformity. ? Soft tissues:? No suspicious soft tissue densities.? ? IMPRESSION:? Subacute fracture of the 5th digit proximal phalanx. ? ? Dictated by: Josh Tyson M.D. on 07/07/2022 at 20:33 ? ? XR ankle: Radiologist's Impression: FINDINGS:? ? Bones:? No fractures or dislocations.? Ankle mortise is normally aligned.? No suspicious bony lesions.? ? Soft tissues:? No tibiotalar joint effusion.? Achilles tendon appears normal.? ? ? IMPRESSION:? No osseous trauma found, normal alignment. ? Dictated by: Jasbir Coto M.D. on 07/07/2022 at 22:01 ? ? MDM Narrative Medical decision making narrative: 36-year-old woman with left foot and ankle pain and increased swelling. She has a healing 5th proximal phalanx fracture and no evidence of acute bony injury throughout the foot and ankle. Brannon wrap is placed reassurance is given. At this point I see no evidence of superimposed infection, abscess and do not suspect DVT. Discussed ibuprofen and Tylenol for pain control and she is safe for home discharge Discharge Plan Departure Patient Disposition: Home Clinical Impression: Acute foot pain Qualifiers: Laterality: left Qualified Code(s): M79.672 - Pain in left foot Instructions: DI for Foot Pain Activity Restrictions/Additional Instructions: Thank you for coming in today The toe that you hit about 2 months ago was in fact broken and is healing nicely. There is no sign of additional fractures or injuries 3 your foot or your ankle. With her clinical exam, I am not concerned with infection, blood clot in your leg or abscess. You clearly have injured her foot and it is appropriately swollen and tender. I have given you an Brannon wrap to use. Using 400 mg of ibuprofen (2 [id number] pills) and 1 Tylenol every 6 hours as well as elevating her foot and staying off it as much as you are able to can be very helpful in controlling pain. If you find that you are getting worse or develop any new symptoms, please feel free to return to the emergency department for further evaluation. Prescriptions: No Action prenat.vits,brooke,[id number] tablet 1 tab PO DAILY sertraline [Zoloft] 50 mg tablet 100 mg PO DAILY Qty: 60 6RF ibuprofen 600 mg Tablet 600 mg PO Q6HR PRN (Reason: Fever/Mild Pain (1-3)) Qty: 30 0RF Referrals: Miscellaneous,DoctorMD [Primary Care Provider] -
--- NOTE | 2022-07-07 21:42 | DI.RAD.S_ITS ---
PROCEDURE: XR ANKLE LT MIN 3V INDICATIONS: swelling TECHNIQUE: 3 views of the ankle were acquired. COMPARISON: None. FINDINGS: Bones: No fractures or dislocations. Ankle mortise is normally aligned. No suspicious bony lesions. Soft tissues: No tibiotalar joint effusion. Achilles tendon appears normal. IMPRESSION: No osseous trauma found, normal alignment. Dictated by: Jasbir Coot M.D. on 07/07/2022 at 22:01 Approved by: Jasbir Coto M.D. on 07/07/2022 at 22:02
[2022-07-07 22:40] VITALS: BP 122/74; PULSE 68; RESP 14; O2SAT 98
== END 2022-07-07 22:44 | disposition home or self-care (01) ==
PROVIDERS: Emergency Provider Emergency Medicine
DX: M79.672 Pain in left foot (principal)
CPT/HCPCS: 73610; 73660; 99283